=== PATIENT | female | born 1980 | race Caucasian/White ===

== ENCOUNTER 2017-07-23 06:12 | Emergency (ER) | payer SELFPAY ==
[2017-07-23] MEDS ORDERED: LORazepam 2 MG/ML VIAL ONE (06:13)
[2017-07-23] MEDS ORDERED: WATER FOR INJ,STERILE 10 ML ONE (06:42)
[2017-07-23] MEDS ORDERED: ZIPRASIDONE MESYLA 20 MG/VIAL IM ONE (06:42)
--- NOTE | 2017-07-23 13:22 | ER ---
Nurse's Notes [facility] Name: Ryanne Fortune Age: 36 yrs Sex: Female : 1980 Arrival Date: 07/23/2017 Time: 06:14 Bed 3 Private MD: Diagnosis: Epilepsy and recurrent seizures Presentation: 07/23 06:14 Presenting complaint: Friend states: that pt had seizure at 0300 but she snapped out of it. She then started to seize again and they brought her here. Pt unresponsive and had to be lifted out of car. Friend states that pt does not take any medication because she cannot afford it. Transition of care: patient was not received from another setting of care. Onset of symptoms was July 23, 2017 at 03:00. Care prior to arrival: None. 06:14 Method Of Arrival: Wheelchair 06:14 Acuity: DAYANA 2 07:30 Initial Sepsis Screen: Does the patient meet any 2 criteria? No. Patient's initial sv sepsis screen is negative. Does the patient have a suspected source of infection? No. Patient's initial sepsis screen is negative. Historical: - Allergies: 06:22 Unable to obtain; fc - Home Meds: 06:22 Unable to obtain [Active]; fc - PMHx: 06:22 Seizures; fc - Immunization history:: Adult Immunizations unknown. - Social history:: Smoking status: unknown. Screenin:22 Abuse screen: Denies threats or abuse. Nutritional screening: No deficits noted. Tuberculosis screening: No symptoms or risk factors identified. Fall Risk None identified. Assessment: 06:15 General: Appears slender, unkempt, Behavior is listless. Neuro: Seizure activity noted aa1 at this time. Respiratory: Airway is patent. Derm: Skin is pink, warm \\T\\ dry. 06:30 Reassessment: Patient appears in no apparent distress at this time. Reassessment: aa1 Seizure activity ceased at this time. 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 Reports she does not remember what happened or why she is here and is unsure who the 2 males were who brought her in. Pt becoming increasingly agitated and yelling at staff. Screaming, "Fuck you, get the fuck off me you bitches." Pt repeatedly saying, "I wanna see my baby! Please let me see my baby before they put her in the ground.". General: Behavior is agitated. Pain: Denies pain. Neuro: Level of Consciousness is awake, alert, Oriented to person, place. Respiratory: Respiratory effort is even, unlabored. GI: No signs and/or symptoms were reported involving the gastrointestinal system. : No signs and/or symptoms were reported regarding the genitourinary system. EENT: No signs and/or symptoms were reported regarding the EENT system. Musculoskeletal: Circulation, motion, and sensation intact. Capillary refill < 3 seconds. 06:58 Reassessment: Patient appears in no apparent distress at this time. Pt resting quietly. aa1 Respirations even \\T\\ unlabored. 07:05 Reassessment: Night ANICETO Rosenthal RN at bedside for US IV placement. hb 07:25 Reassessment: Unable to establish US IV access, DELIA Yoon, Dr. Reese, and ANICETO Campbell hb notified at bedside. 08:58 Reassessment: Patient appears in no apparent distress at this time. Pt appears to be sv sleeping at this time with eyes closed. Respiration even and unlabored with no respiratory distress noted. 09:30 Reassessment: Gretchen from inside lab attempting to get a blood sample. Pt not being sv cooperative. Pt yelling for them to stop poking her. Pt not being cooperative at this time. Unable to obtain blood at this time. Terrie from EKG attempted to do EKG and pt continuing to yell. 11:24 Reassessment: Patient appears in no apparent distress at this time. Pt appears to be sv sleeping at this time with eyes closed. Respirations even and unlabored with no difficulty noted. 12:15 Reassessment: Patient appears in no apparent distress at this time. No changes from hb previously documented assessment. Patient and/or family updated on plan of care and expected duration. Pain level reassessed. 13:08 Reassessment: Patient appears in no apparent distress at this time. No changes from hb previously documented assessment. Patient and/or family updated on plan of care and expected duration. Pain level reassessed. Family at bedside. 13:18 Reassessment: Friend at the bedside who brought her into the ER. Informed by Karrie brady that once pt is awake and able to walk she can be discharged home. 13:30 Reassessment: Pt up for discharge but unable to stay awake enough to get up and sv ambulate before being discharged. Friend at bedside. 14:30 Reassessment: Patient appears in no apparent distress at this time. Patient and/or hb family updated on plan of care and expected duration. Pain level reassessed. Patient is alert, oriented x 3, equal unlabored respirations, skin warm/dry/pink. 15:00 Reassessment: Pt's friend is at the bedside. Pt appears to be sleeping with eyes sv closed. Respirations even and unlabored. Vital Signs: 06:09 BP 130 / 86; Pulse 87; Resp 16; Temp 98.0; Pulse Ox 95% on R/A; aa1 06:55 BP 104 / 69; Pulse 90; Resp 18; Pulse Ox 100% on R/A; aa1 07:30 BP 97 / 66; Pulse 85; Resp 15; Pulse Ox 100% on R/A; hb 08:45 BP 91 / 58; Pulse 75; Resp 16; Pulse Ox 100% on R/A; jb1 10:07 BP 93 / 63; Pulse 71; Resp 16; Pulse Ox 97% on R/A; jb1 11:02 BP 95 / 60; Pulse 75; Resp 16; Pulse Ox 97% on R/A; jb1 12:00 BP 98 / 70; Pulse 70; Resp 15; Pulse Ox 100% on R/A; hb 13:00 BP 100 / 71; Pulse 74; Resp 15; Pulse Ox 100% on R/A; hb 14:00 BP 106 / 68; Pulse 72; Resp 16; Pulse Ox 100% on R/A; hb ED Course: 06:14 Patient arrived in ED. rg2 06:15 Missed attempt(s): 24 gauge in right wrist. fc 06:18 Missed attempt(s): 22 gauge in right hand. fc 06:20 Missed attempt(s): 22 gauge in left foot. Bleeding controlled, band aid applied, aa1 catheter tip intact. 06:21 Triage completed. fc 06:22 Arm band placed on Patient placed in an exam room, on a stretcher. fc 06:22 Patient has correct armband on for positive identification. Placed in gown. Bed in low fc position. Call light in reach. Side rails up X2. Seizure precautions initiated. 06:22 Missed attempt(s): 24 gauge in left hand. by Sarath Swan NP. Bleeding controlled, band aa1 aid applied, catheter tip intact. 06:28 Karrie Swan FNP-C is [facility]. kb 06:28 Rafi Hsieh MD is Attending Physician. kb 06:28 Missed attempt(s): 20 gauge in right EJ by Sarath Swan NP. aa1 07:00 Report given to Sabina Scherer RN. aa1 07:20 Missed attempt(s): 18 gauge midline to right upper arm. Bleeding controlled, band aid fc applied, catheter tip intact. 08:58 Larissa Hunt, RN is Primary Nurse. sv 10:50 EKG done, by medical technician. reviewed by Karrie RAVI. at1 14:31 No provider procedures requiring assistance completed. Patient did not have IV access hb during this emergency room visit. Administered Medications: 06:30 Drug: Ativan 2 mg Route: IM; Site: left vastus lateralis; aa1 07:15 Follow up: Response: No adverse reaction sv 06:50 Drug: Geodon 20 mg Route: IM; Site: left gluteus; aa1 07:15 Follow up: Response: No adverse reaction sv Outcome: 13:22 Discharge ordered by . kb 14:31 Discharged to home via wheelchair, with family. hb 14:31 Condition: stable 14:31 Discharge instructions given to patient, Instructed on discharge instructions, follow up and referral plans. medication usage, Demonstrated understanding of instructions, follow-up care, medications. 14:32 Patient left the ED. hb Signatures: Yehuda Colon jb1 Karrie Swan FNP-C PROFESSOR OF EXERCISE SCIENCE-Ckb Clint Bateman rg2 Larissa Hunt, Alva Holland RN, RN RN [email or web address] Ariadna Jane RN RN fc gonzales, Amanda, block cuber EKG Tat1 Sabina Scherer RN RN hb
--- NOTE | 2017-07-23 13:23 | EDPHYS ---
Physician Documentation [facility] Name: Ryanne Fortune Age: 36 yrs Sex: Female : 1980 Arrival Date: 07/23/2017 Time: 06:14 Bed 3 Private MD: ED Physician Rafi Hsieh HPI: 07/23 06:32 This 36 yrs old Female presents to ER via Wheelchair with complaints of kb seizure. 06:32 The patient presents with a history of multiple seizures, an unknown number. Character kb of seizure(s): Loss of consciousness: the patient experienced loss of consciousness, during seizure(s), Motor activity: generalized, shaking all over, Incontinence: none, Apnea: the patient did not experience apnea, Circulation: the patient did not experience evidence of pulse disturbance. Seizure onset: at 03:00. Context: the seizure(s) was witnessed, by a friend, occurred at home. Seizure Hx: Original onset: longstanding, Seizure medications: none, "can't afford meds". Associated injury: The patient did not suffer any apparent associated injury. Current symptoms: Pt has episodes of seizure activity, then periods of awake and alert state. . The patient has experienced similar episodes in the past, chronically. The patient has not recently seen a physician. While pt is awake she is combative, saying she wants to go home. Also asking to "hold her baby one more time." Has episodes of small seizure lasting less than a minute.. Historical: - Allergies: 06:22 Unable to obtain; fc - Home Meds: 06:22 Unable to obtain [Active]; fc - PMHx: 06:22 Seizures; fc - Immunization history:: Adult Immunizations unknown. - Social history:: Smoking status: unknown. ROS: 06:29 Constitutional: Negative for fever, chills, and weight loss, Eyes: Negative for injury, kb pain, redness, and discharge, ENT: Negative for injury, pain, and discharge, Neck: Negative for injury, pain, and swelling, Cardiovascular: Negative for chest pain, palpitations, and edema, Respiratory: Negative for shortness of breath, cough, wheezing, and pleuritic chest pain, Abdomen/GI: Negative for abdominal pain, nausea, vomiting, diarrhea, and constipation, MS/Extremity: Negative for injury and deformity, Skin: Negative for injury, rash, and discoloration. 06:29 Neuro: Positive for seizure activity. Exam: 06:29 Head/Face: Normocephalic, atraumatic. Eyes: Pupils equal round and reactive to light, kb extra-ocular motions intact. Lids and lashes normal. Conjunctiva and sclera are non-icteric and not injected. Cornea within normal limits. Periorbital areas with no swelling, redness, or edema. Chest/axilla: Normal chest wall appearance and motion. Nontender with no deformity. No lesions are appreciated. Cardiovascular: Regular rate and rhythm with a normal S1 and S2. No gallops, murmurs, or rubs. Normal PMI, no JVD. No pulse deficits. Respiratory: Lungs have equal breath sounds bilaterally, clear to auscultation and percussion. No rales, rhonchi or wheezes noted. No increased work of breathing, no retractions or nasal flaring. Abdomen/GI: Soft, non-tender, with normal bowel sounds. No distension or tympany. No guarding or rebound. No evidence of tenderness throughout. Skin: Warm, dry with normal turgor. Normal color with no rashes, no lesions, and no evidence of cellulitis. MS/ Extremity: Pulses equal, no cyanosis. Neurovascular intact. Full, normal range of motion. 06:29 Constitutional: The patient appears awake. 06:29 Neuro: 06:29 Neuro: seizure activity, grand mal type is displayed, Pt has episodes of seizure activity, then wakes up and is combative, but alert and talking. . Vital Signs: 06:09 BP 130 / 86; Pulse 87; Resp 16; Temp 98.0; Pulse Ox 95% on R/A; aa1 06:55 BP 104 / 69; Pulse 90; Resp 18; Pulse Ox 100% on R/A; aa1 07:30 BP 97 / 66; Pulse 85; Resp 15; Pulse Ox 100% on R/A; hb 08:45 BP 91 / 58; Pulse 75; Resp 16; Pulse Ox 100% on R/A; jb1 10:07 BP 93 / 63; Pulse 71; Resp 16; Pulse Ox 97% on R/A; jb1 11:02 BP 95 / 60; Pulse 75; Resp 16; Pulse Ox 97% on R/A; jb1 12:00 BP 98 / 70; Pulse 70; Resp 15; Pulse Ox 100% on R/A; hb 13:00 BP 100 / 71; Pulse 74; Resp 15; Pulse Ox 100% on R/A; hb 14:00 BP 106 / 68; Pulse 72; Resp 16; Pulse Ox 100% on R/A; hb MDM: 06:28 Patient medically screened. kb 06:29 Data reviewed: vital signs, nurses notes. Data interpreted: Pulse oximetry: on room air kb is 98 %. Interpretation: normal. 06:42 ED course: Pt walked from room to nurses station saying she wanted to sign out AMA and kb go home. Pt then had an episode of seizure activity (body tensed up), was lowered into wheelchair and taken back to Room 3 . 06:50 ED course: Pt reports smoking meth today. kb 10:55 ED course: Pt has been sleeping comfortably. Awakens to verbal stimuli. No seizure kb activity since returned to stretcher earlier this morning. 13:20 Counseling: I had a detailed discussion with the patient and/or guardian regarding: the kb historical points, exam findings, and any diagnostic results supporting the discharge/admit diagnosis, the need for outpatient follow up, a family practitioner, to return to the emergency department if symptoms worsen or persist or if there are any questions or concerns that arise at home. ED course: Boyfriend is at bedside. States pt did meth and took soma last night. Has never been on medication for seizures because she wasn't able to afford it. Pt wakes up and communicates with him. Pt has not had any seizure activity since 644. Will discharge home with boyfriend who will watch pt and bring her back for any concerns. . 07/23 06:29 Order name: EKG; Complete Time: 06:29 kb Administered Medications: 06:30 Drug: Ativan 2 mg Route: IM; Site: left vastus lateralis; aa1 07:15 Follow up: Response: No adverse reaction sv 06:50 Drug: Geodon 20 mg Route: IM; Site: left gluteus; aa1 07:15 Follow up: Response: No adverse reaction sv Disposition: 07/23/17 13:22 Discharged to Home. Impression: Epilepsy and recurrent seizures. - Condition is Stable. - Discharge Instructions: Seizure, Adult, [id number]. - Medication Reconciliation Form, Thank You Letter, Antibiotic Education, Prescription Opioid Use form. - Follow up: Emergency Department; When: As needed; Reason: Worsening of condition. Follow up: Private Physician; When: 2 - 3 days; Reason: Recheck today's complaints, Continuance of care, Re-evaluation by your physician. Addendum: 07/28/2017 19:08 Co-signature as Attending Physician, Rafi josé Signatures: Dispatcher [employer] EDAL Karrie Swan, JACKSON-C INSTRUMENT SETTER-Larissa Nunez RN RN Alva Garsia RN RN aa1 Rafi Hsieh MD MD pkl Chretien, Felicia RN RN Sabina Scherer RN RN Corrections: (The following items were deleted from the chart) 07/23 09:05 06:32 While pt is awake she is combative, saying she wants to go home. Also asking to kb "hold her baby one more time." . kb
--- NOTE | 2017-07-23 13:38 | EKG ---
Test Date: 2017-07-23 Test Time: 10:28:42 Bakery Chef: MELANIE MEASUREMENT RESULTS: Intervals: Rate: 76 MN: 156 QRSD: 104 QT: 386 QTc: 434 Flora: P: 58 MN: 156 QRS: 53 T: 60 INTERPRETIVE STATEMENTS: Normal sinus rhythm Normal ECG Compared to ECG 10/19/2008 18:24:44 No significant changes Electronically Signed On 07-23-17 13:38:08 CDT by Matheus Taylor
== END 2017-07-23 14:32 | disposition home or self-care (01) ==
LOC: ER 06:12
DX: G40.802 Other epilepsy, not intractable, without status epilepticus (principal)
CPT/HCPCS: 93005; 96372; 99283; J3486

== ENCOUNTER → 2023-05-20 | Emergency (ER) | payer SELFPAY ==
--- OUTSIDE RECORDS SUMMARY | 2023-05-20 13:58 | XMS REPORT | Continuity of Care Document ---
Author Name Unknown Address [address] [facility] [address] [place] [address] [facility] thconnect Address [address] [facility] [address] [place] [address] Care Team Providers Care Guyline Operator Name Role Phone PCP, PATIENT DOES NOT HAVE A Primary Care Physic lorena Unavailable YUAN BORJAS Attending Clinician Unavailable Yuan Borjas DO Attending Clinician GERI Attending Clinician Unavailable DR YASMINE BAINS Attending Clinician UnavailYUAN Rangel Admitting Clinician Unavailable GERI Admitting Clinician Unavailable DR YASMINE BAINS Admitting Clinician Unavailnestor patten Payers Payer Name Policy Type Policy Number Effective Date Expirati on Date Source [facility] [id number] [facility] PES [id number] Problems Condition Name Condition Details Condition Category Status Onset Date Resolution Date Last Treatment Date Treating Clinician Comments Source Heroin abuse Heroin abuse Disease Active 10-24 00:00: 00 [facility] Leukocytos is Leukocytos is Disease Active 10-24 00:00: 00 [facility] Hypoalbumi nemia Hypoalbumi nemia Disease Active 10-24 00:00: 00 [facility] Abscess Abscess Disease Active 10-23 00:00: 00 [facility] 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 ICD10 Diagnosis Term Cattle [employer] Utility [facility] Other, mixed, or unspecifie d nondepende nt drug abuse, unspecifie d Other, mixed, or unspecifie d nondepende nt drug abuse, unspecifie d Disease Active 2006-03 00:00: 00 [facility] Allergies, Adverse Reactions, Alerts Allergy Name Allergy Type Status Severity Reaction(s) Onset Date Inactive Date Treating Clinician Comments Source Toradol DA Active Unknown 08-15 00:00: 00 [facility] Levaquin DA Active Unknown 08-15 00:00: 00 [facility] Levoflox acin In D5w Propensi ty to adverse reaction s Active Unknown - See comments 2006-03 00:00: 00 [facility] LEVOFLOX ACIN IN D5W DRUG Active Unknown-Cmnt 2006-03 00:00: 00 [facility] Social History Social Habit Start Date Stop Date Quantity Comments Source History of tobacco use Cigarette Smoker [facility] intake 2021-10-09 00:00:00 2021-10-09 00:00:00 Current non-drinker of alcohol (finding) [facility] History of Social function 2016-09-25 00:00:00 2016-09-25 00:00:00 [facility] Cigarettes smoked current (pack per day) - Reported 2007-03-12 00:00:00 2007-03-12 00:00:00 [facility] Cigarette pack-years 2007-03-12 00:00:00 2007-03-12 00:00:00 [facility] Sex Assigned At 1980 00:00:00 1980 00:00:00 [facility] Smoking Status Start Date Stop Date Source Smokes tobacco daily 2007-03-12 00:00:00 [facility] Medications Ordered Medication Name Filled Medication Name Start Date Stop Date Current Medication? Ordering Clinician Indication Dosage Frequency Signature (SIG) Comments Components Source naproxen sodium 550 mg tablet 2022-03 00:00: 00 Yes [id number] 550mg Take 1 tablet by mouth in the morning and 1 tablet in the evening. Take with meals. [facility] methylPREDN ISolone 4 mg tablets 2022-03 00:00: 00 Yes [id number] Take by mouth SEE-INSTRU CTIONS. follow package directions [facility] methocarbam oL 500 mg tablet 2022-03 00:00: 00 02-23 05:59 :00 No [id number] 500mg Take 1 tablet by mouth in the morning and 1 tablet at noon and 1 tablet in the evening. Do all this for 5 days. [facility] ibuprofen 800 mg tablet 10-24 00:00: 00 Yes 800mg Take 1 tablet by mouth every 6 (six) hours as needed for Pain (scale 4-6), Alternate with [place] for pain scale 1-3 or Alternate with [place] for pain scale 4-6. [facility] acetaminoph en 325 mg tablet 10-24 00:00: 00 Yes 650mg Take 2 tablets by mouth every 6 (six) hours as needed for Pain (scale 1-3). [facility] Immunizations Ordered Immunization Name Filled Immunization Name Date Status Comments Source Influenza Virus Vaccine Unknown Completed [facility] Vital Signs Vital Name Observation Time Observation Value Comments S ource Systolic blood pressure 2023-02-17 15:38:00 112 mm[Hg] [facility] Diastolic blood pressure 2023-02-17 15:38:00 88 mm[Hg] [facility] Heart rate 2023-02-17 15:38:00 102 /min [facility] Body temperature 2023-02-17 15:38:00 37.11 Beatriz [facility] Respiratory rate 2023-02-17 15:38:00 18 /min [facility] Body height 2023-02-17 15:38:[address] [facility] Body weight 2023-02-17 15:38:[address] [facility] BMI 2023-02-17 15:38:00 21.63 kg/m2 [facility] Oxygen saturation in Arterial blood by Pulse oximetry 2023-02-17 15:38:00 100 /min [facility] Height 2020-07-12 00:53:00 167.64 CM Weight 2020-07-12 00:53:00 49.89 KG Procedures Procedure Date / Time Performed Performing Clinicia n Source ASSIGNMENT OF BENEFITS 2023-02-17 17:05:53 Docto r Unassigned, [facility] XR SHOULDER <2 VW LEFT 2023-02-17 16:30:12 Adama Borjas [facility] CONSENT/REFUSAL FOR DIAGNOSIS AND TREATMENT 2023-02-17 15:34:17 Doctor Unassigned, [facility] Encounters Start Date/Time End Date/Time Encounter Type Admission Type Attending [facility] Care Facility Care Department Encounter ID Source 2023-02-17 09:42:00 2023-02-17 11:30:00 Emergency X YUAN BORJAS [facility] ERT [id number] [facility] 2023-02-17 09:42:00 2023-02-17 11:30:00 Emergency Yuan Borjas [facility] [id number] [facility] 2020-12-29 10:21:00 2020-12-29 10:21:00 Outpatient MIKE WARD [facility] [id number] [facility] 2020-11-16 02:04:00 2020-11-16 02:04:00 Outpatient [facility] [id number] [facility] 2020-07-12 00:48:00 2020-07-12 01:46:00 Emergency E YASMINE BAINS [facility] [id number] [facility]
--- NOTE | 2023-05-20 14:07 | ER ---
Nurse's Notes [facility] Name: Ryanne Fortune Age: 42 yrs Sex: Female : 1980 Arrival Date: 05/20/2023 Time: 13:54 Bed 4 Private MD: Diagnosis: Cardiac arrest, cause unspecified Presentation: 05/20 13:53 Chief complaint: EMS states: they were called for unknown downtime. narcan was ap3 administered intranasally by deputy who arrived on scene. EMS arrived and during their time with the patient they gave 6 of epi, 2 of bicarb, 1 calcium and 2 narcan. EMS also reports they shocked the patient twice in route. EMS established IO in route and initiated fluids to the patient. EMS also intubated patient with a 7.0 ET tube marked 20 at the mouth. patient arrived to ED with mayur on and it is reported patient had been receiving a total of 55 minutes of CPR prior to her arrival to the ED. 13:53 Method Of Arrival: EMS: [facility] ap3 13:53 Compressions began prior to arrival. ap3 14:04 Acuity: DAYANA 1 ph 14:05 Care prior to arrival: CPR manually via thumper performed by EMS was defibrillated and ap3 is still in progress Medication(s) given: Narcan, Epi, bicarb, calcium chloride, normal saline IV initiated. IO. Assessment: 13:53 CPR assessment: unresponsive, pupils fixed \T\ dilated, no respiratory effort, intubated, ph Ambu ventilation, cyanotic. Cardiac rhythm is asystole. General: Appears slender, Behavior is unresponsive. Neuro: Level of Consciousness is unresponsive. Respiratory: Airway via oral intubation Trachea midline. Derm: Skin is dusky, pale, Skin temperature is cool. 13:56 Reassessment: Dr Valdez at bedside w/ US, no cardiac activity, TOD called at [address] kamran Valdez. Cardiovascular: Rhythm is asystole. 14:34 Reassessment: Contacted [facility], coordinator: Jack, ref # [id number]. ph 14:36 Reassessment: Judge Hernandez at bedside, states that body will go emergency medical dispatcher, police ph remain at bedside. Merary Coma Score: 15:09 Eye Response: none(1). Motor Response: none(1). Verbal Response: none(1). Total: 3. ms3 ED Course: 13:55 Missed attempt(s): 22 gauge in right antecubital area. ph 13:56 Patient arrived in ED. bd 13:56 Kavon Valdez DO is Attending Physician. ms3 14:05 Triage completed. ph 14:05 Kavon Valdez DO is Pronouncing Provider. ms3 14:15 Stephanie Cespedes, RN is Primary Nurse. ph 14:16 Arm band placed on. ph 14:22 photography professor David in route to ER,per sheriff deputy Hernández. bd Administered Medications: No medications were administered Outcome: 13:56 Outcome Patient ap3 13:56 Condition: ph 13:56 Patient : Time of 13:56 Pronounced by Kavon Valdez DO ph 15:33 Patient left the ED. ap3 Signatures: Natalie Sue bd Stephanie Cespedes, RN RN ph [facility] ap3 Kavon Valdez DO DO ms3 Corrections: (The following items were deleted from the chart) 14:19 13:56 Reassessment: TOD called at [address] Valdez ph ph
--- NOTE | 2023-05-20 14:07 | EDPHYS ---
Physician Documentation [facility] Name: Ryanne Fortune Age: 42 yrs Sex: Female : 1980 Arrival Date: 05/20/2023 Time: 13:54 Bed 4 Private MD: ED Physician Kavon Valdez HPI: 05/20 15:09 This 42 yrs old Female presents to ER via EMS with complaints of CPR. ms3 15:09 42-year-old female with unknown past medical history presents to the emergency ak3 department via [facility] after being found down. EMS states patient had unknown downtime. On their arrival patient was in asystole. EMS administered 6 epinephrine, sodium bicarb, calcium chloride and Narcan. EMS notes patient was in fine V-fib on 3 occasions and patient was defibrillated without change in rhythm. An IO was obtained in the right humeral head and 1 L normal saline was given. EMS obtained blood glucose of 326, end-tidal CO2 was initially 22-30 and decreased to 16 prior to arrival in the emergency department. Patient was intubated with a 7.0 endotracheal tube in the field.. ROS: 15:09 Unable to obtain ROS due to CPR in progress, ms3 Exam: 15:09 Head/Face: Normocephalic, atraumatic. ms3 15:09 Constitutional: The patient appears obviously ill, pale, 15:09 Eyes: Pupils: are fixed and dilated, 15:09 Neck: External neck: ecchymosis, is not appreciated, erythema, is not appreciated, laceration, is not appreciated, 15:09 Chest/axilla: Inspection: normal, no abrasion, no deformity, no ecchymosis, no scar(s), 15:09 Cardiovascular: Patient without pulses, bedside ultrasound does not show cardiac movement, or pericardial effusion, 15:09 Respiratory: Intubated with 7.0 endotracheal tube, chest rise with BVM, 15:09 Abdomen/GI: Inspection: abdomen appears normal, Palpation: soft, in all quadrants, 15:09 Skin: Appearance: Color: pale, Temperature: cool, [place] Coma Score: 15:09 Eye Response: none(1). Motor Response: none(1). Verbal Response: none(1). Total: 3. ms3 MDM: 13:56 Patient medically screened. ms3 15:09 Differential diagnosis: arrythmia, cardiac arrest, respiratory arrest. Data reviewed: ms3 vital signs, nurses notes. Independent interpretation of the following test(s) in the Emergency Department Point of Care Ultrasound performed by Emergency Department Team, please see interpretation in the Ultrasound procedure note. Historians other than the Patient: EMS: [facility]. ED course: Presented canisters department in the emergency department at time of . No family present. Patient's boyfriend present and he was notified of patient's .. Administered Medications: No medications were administered Disposition: 15:15 Chart complete. ms3 Disposition Summary: 05/20/23 14:06 Patient Notes: Location: Utility Maintenance Worker ms3 Pronouncing Physician: Kavon Valdez ms3 Time of : 13:56 05/20/2023 ms3 Diagnosis - Cardiac arrest, cause unspecified ms3 Signatures: Kavon Valdez, DO DO ms3
== END ==
LOC: ER 13:54
DX: I46.9 Cardiac arrest, cause unspecified (principal)
CPT/HCPCS: 92950